=== PATIENT | female | born 1970 | race Caucasian/White ===

== ENCOUNTER → 2020-09-09 | Day surgery (SDC) | payer OTHER ==
[2020-09-07 15:02] VITALS: BMI 20.5
[~2020-09-09] MED LIST: LIDOCAINE HCL 2% (50ML VIAL) NR ONE; MIDAZOLAM HCL 2 MG/2 ML SINGLE DOSE VIAL ONE; PROPOFOL 20 ML ONE
[2020-09-09 10:49] VITALS: TEMP 98
[2020-09-09 11:20] VITALS: BP 118/66; PULSE 62
== END | disposition home or self-care (01) ==
LOC: FASU 08:03
PROVIDERS: ATTEND Orthopaedic Surgery Hand Surgery
PROC: 0LN80ZZ Release Left Hand Tendon, Open Approach (ICD-10-PCS; principal; 2020-09-09 10:27)
DX: M65.332 Trigger finger, left middle finger (principal)